=== PATIENT | female | born 1950 ===

== ENCOUNTER 2020-01-08 11:17 | Outpatient (CLI) | payer OTHER | END 2020-01-08 11:20 | disposition home or self-care (01) | LOC: SONOGRAMA 11:17 | DX: E04.2 Nontoxic multinodular goiter (principal) ==

== ENCOUNTER 2020-05-14 12:22 | Outpatient (CLI) | payer OTHER | END 2020-05-14 16:08 | disposition home or self-care (01) | LOC: OFIC 805 12:22 | PROVIDERS: ATTEND Otolaryngology Otology & Neurotology | DX: H93.8X2 Other specified disorders of left ear (principal); H61.23 Impacted cerumen, bilateral ==

== ENCOUNTER 2021-09-19 13:20 | Outpatient (CLI) | payer OTHER | END 2021-09-19 13:45 | disposition home or self-care (01) | LOC: PPH VACUNA 13:20 | PROVIDERS: ATTEND Emergency Medicine Pediatric Emergency Medicine | DX: Z23 Encounter for immunization (principal) ==